=== PATIENT | female | born 1970 | race Caucasian/White ===

== ENCOUNTER 2017-08-04 08:22 | Emergency (ER) | payer BC ==
[~2017-08-04 08:22] MED LIST: ALBUTEROL INHALER INH; HYDROCODON-ACE1 EAC7 PO; IBUPROFEN800 MG PO; LEVAQUIN750 MG PO; MIRALAX17 GM PO; NO MEDICATIONS; PANTOPRAZOLE SO40 MG PO; TESSALON PERLES PO; TUSSIONEX PENN480 ML PO; ZITHROMAX 250MG PO; ZYRTEC PO
[2017-08-04] MEDS ORDERED: ZYRTEC (08:30)
== END 2017-08-04 09:24 | disposition home or self-care (01) ==
LOC: SED 08:22
DX: J20.9 Acute bronchitis, unspecified (principal); M79.1 Myalgia; F17.200 Nicotine dependence, unspecified, uncomplicated; Z88.2 Allergy status to sulfonamides; Z88.1 Allergy status to other antibiotic agents
CPT/HCPCS: 99283